=== PATIENT | female | born 1935 | race Caucasian/White ===

== ENCOUNTER 2017-07-11 08:37 | Emergency (ER) | payer MEDICARE, BC ==
[~2017-07-11] VITALS: Ht 149.9 cm; Wt 77.0 kg
[~2017-07-11 08:37] MED LIST: CLIN150 PO; DICL50TA3 PO; GLUC250C5; INDO50CA PO; MAXZ25 PO; PRAV10 PO
[2017-07-11 08:41] VITALS: BP 133/62; PULSE 90; RESP 16; TEMP 97.7; O2SAT 95
--- NOTE | 2017-07-11 08:56 | PD ---
HPI Chief Complaint: Musculoskeletal Complaint Time Seen by Provider: 08:52 Travel History International Travel<30 days: No Contact w/Intl Traveler<30days: No Traveled to known affect area: No History of Present Illness HPI Patient presents with concerns of 2-3 days of left ankle swelling. Denies any trauma misstep or fall. Admits to an episode of gout 20 years ago. Painful to bear weight. Denies any calf pain. PFSH Past Medical History High Cholesterol: Yes Gout: Yes Hypertension: Yes Menopausal: Yes Social History Alcohol Use: Yes (WINE) Tobacco Use: No Substance Use: No Allergies-Medications (Allergen,Severity, Reaction): Coded Allergies: Sulfa (Sulfonamide Antibiotics) (Verified Allergy, Unknown, 07/11/17) Reported Meds & Prescriptions Reported Meds & Active Scripts Active Naproxen 500 Mg Tab 500 Mg PO BID 10 Days Reported Triamterene-Hydrochlorothiazide 37.5-25 Mg Cap 1 Cap PO DAILY Pravastatin 10 Mg Tab 10 Mg PO DAILY Glucosamine-Chondroitin 500-400 Mg Tab 1 Tab PO DAILY Review of Systems General / Constitutional: No: Fever Eyes: No: Visual changes HENT: No: Headaches Cardiovascular: No: Chest Pain or Discomfort Respiratory: No: Shortness of Breath Gastrointestinal: No: Abdominal Pain Genitourinary: No: Dysuria Musculoskeletal: No: Pain Skin: No Rash Neurologic: No: Weakness Psychiatric: No: Depression Endocrine: No: Polydipsia Hematologic/Lymphatic: No: Easy Bruising Physical Exam Narrative GENERAL: Well-nourished, well-developed patient. SKIN: Focused skin assessment warm/dry. HEAD: Normocephalic. EYES: No scleral icterus. No injection or drainage. NECK: Supple, trachea midline. No JVD or lymphadenopathy. CARDIOVASCULAR: Regular rate and rhythm without murmurs, gallops, or rubs. RESPIRATORY: Breath sounds equal bilaterally. No accessory muscle use. GASTROINTESTINAL: Abdomen soft, non-tender, nondistended. MUSCULOSKELETAL: No cyanosis, or edema. BACK: Nontender without obvious deformity. No CVA tenderness. Left ankle swelling with palpable dorsal pedis pulses bilaterally, no ecchymosis or bony deformity, pain on flexion extension and manipulation Data Data Last Documented VS Vital Signs Date Time Temp Pulse Resp B/P (MAP) Pulse Ox O2 Delivery O2 Flow Rate FiO2 07/11/17 08:41 97.7 90 16 133/62 (85) 95 Orders Orders Ankle, Limited (Ap&Lat) (07/11/17 ) Splint Or Brace Apply/Monitor (07/11/17 09:24) MDM Medical Decision Making Medical Screen Exam Complete: Yes Emergency Medical Condition: Yes Differential Diagnosis Gout, pseudogout, ankle sprain, DVT, ankle fracture Narrative Course Assessment and plan discussed with patient and at bedside. Last 72 hours Impressions Ankle X-Ray 07/11/17 0000 Signed Impressions: Service Date/Time: Tuesday, July 11, 2017 08:59 - CONCLUSION: Generalized soft tissue swelling without fracture Aries Levine MD FACR Diagnosis Primary Impression: Ankle pain, left Qualified Codes: M25.572 - Pain in left ankle and joints of left foot Patient Instructions: General Instructions Additional Instructions: Patient is unstable and crutches, encouraged to use her walker on a regular basis. Encouraged follow-up with her PCP for additional studies. Return to emergency with any onset of new symptoms. Encourage nonsteroidal anti- inflammatories ice and elevation Med/Other Pt SpecificInfo: Prescription(s) given Scripts Naproxen (Naproxen) 500 Mg Tab 500 MG PO BID for inflammation for 10 Days, #20 TAB 0 Refills Prov: Eagle Teague MD 07/11/17 Disposition: 01 DISCHARGE HOME Condition: Good Eagle Teague MD Jul 11, 2017 08:55
[2017-07-11] MEDS ORDERED: PRAV10TA PO (08:57)
[2017-07-11] MEDS ORDERED: GLUC500T4 PO (08:57)
[2017-07-11] MEDS ORDERED: TRIA37.53 PO (08:57)
--- NOTE | 2017-07-11 09:16 | RADRPT ---
EXAM DATE/TIME: 07/11/2017 08:59 [facility] COMPARISON: No previous studies available for comparison. INDICATIONS : Pain and swelling. MEDICAL HISTORY : None. SURGICAL HISTORY : None. ENCOUNTER: Initial ACUITY: 3 days PAIN SCORE: 7/10 LOCATION: Left ankle. FINDINGS: Generalized soft tissue swelling with mild degenerative changes. No fracture CONCLUSION: Generalized soft tissue swelling without fracture Aries Levine MD FACR on July 11, 2017 at 9:12 Board Certified Radiologist. This report was verified electronically.
[2017-07-11] MEDS ORDERED: NAPR500T2 PO (09:24)
== END 2017-07-11 09:56 | disposition home or self-care (01) ==
LOC: PHEFT 08:37
DX: M25.572 Pain in left ankle and joints of left foot (principal); E78.00 Pure hypercholesterolemia, unspecified; M10.9 Gout, unspecified; I10 Essential (primary) hypertension; Z79.899 Other long term (current) drug therapy; Z88.2 Allergy status to sulfonamides
CPT/HCPCS: 73600; 99283

== ENCOUNTER 2017-07-24 23:05 | Emergency (ER) | payer MEDICARE, BC ==
[~2017-07-24] VITALS: Ht 152.4 cm; Wt 77.2 kg
[~2017-07-24 23:05] MED LIST changes: -CLIN150 PO; -DICL50TA3 PO; -GLUC250C5; +GLUC500T4 PO; -INDO50CA PO; -MAXZ25 PO; +NAPR500T2 PO; -PRAV10 PO; +PRAV10TA PO; +TRIA37.53 PO
[2017-07-24 23:08] VITALS: BP 171/72; PULSE 94; RESP 16; TEMP 97.3; O2SAT 95
[2017-07-25] MEDS ORDERED: SILVER NITR/POTASSIUM NITRATE APPLICATORS TOPICAL ONE (00:15)
--- NOTE | 2017-07-25 00:21 | PD ---
HPI Chief Complaint: Oral / Dental Pain or Problem Time Seen by Provider: 23:59 Travel History International Travel<30 days: No Contact w/Intl Traveler<30days: No Traveled to known affect area: No History of Present Illness HPI The patient is an 82-year-old female that noticed a loose tooth today, tooth # 16. She has some pain whenever the tooth moves. It is not bleeding. PFSH Past Medical History High Cholesterol: Yes Gout: Yes Hypertension: Yes Immunizations Current: Yes (SHINGLES: 2017) Tetanus Vaccination: > 5 Years Influenza Vaccination: Yes ?: Not Menopausal: Yes Past Surgical History Eye Surgery: Yes (BILATERAL CATARACT) Joint Replacement: Yes (BILATERAL KNEE, RIGHT ANKLE) Social History Alcohol Use: Yes (WINE) Tobacco Use: No Substance Use: No Allergies-Medications (Allergen,Severity, Reaction): Coded Allergies: Sulfa (Sulfonamide Antibiotics) (Verified Allergy, Unknown, 07/24/17) Reported Meds & Prescriptions Reported Meds & Active Scripts Active Reported Triamterene-Hydrochlorothiazide 37.5-25 Mg Cap 1 Cap PO DAILY Pravastatin 10 Mg Tab 10 Mg PO DAILY Glucosamine-Chondroitin 500-400 Mg Tab 1 Tab PO DAILY Review of Systems Except as stated in HPI: all other systems reviewed are Neg Physical Exam Narrative GENERAL: Well-nourished, well-developed patient in moderate apparent distress with her loose tooth. Her vital signs show blood pressure 171/72 but otherwise normal. SKIN: Focused skin assessment warm/dry. HEAD: Normocephalic. EYES: No scleral icterus. No injection or drainage. NECK: Supple, trachea midline. No JVD or lymphadenopathy. CARDIOVASCULAR: Regular rate and rhythm without murmurs, gallops, or rubs. RESPIRATORY: Breath sounds equal bilaterally. No accessory muscle use. GASTROINTESTINAL: Abdomen soft, non-tender, nondistended. MUSCULOSKELETAL: No cyanosis, or edema. BACK: Nontender without obvious deformity. No CVA tenderness. DENTAL: No malocclusion. Tooth #16 is extremely loose and they removed it. There was minimal bleeding present and the patient needed no cauterization. Data Data Last Documented VS Vital Signs Date Time Temp Pulse Resp B/P (MAP) Pulse Ox O2 Delivery O2 Flow Rate FiO2 07/24/17 23:08 97.3 94 16 171/72 (105) 95 Orders Orders Silver Nitrate Applicators (Silver Nitra (07/25/17 00:15) MDM Medical Decision Making Medical Screen Exam Complete: Yes Emergency Medical Condition: Yes Medical Record Reviewed: Yes Differential Diagnosis Loose tooth, infected tooth, dental abscess Narrative Course The tooth was extremely loose and I removed it without a problem. There was minimal bleeding which did not need any cauterization, packing or anything else at this time. The patient is told to bite down on a moistened T bag if she gets bleeding again. She should follow-up with a dentist. Diagnosis Primary Impression: S/P tooth extraction Additional Instructions: As we discussed, bite down on a moistened tea bag if you get bleeding again. Follow-up with a dentist. Bring the tooth to the dentist so the he can examine it. Med/Other Pt SpecificInfo: No Change to Meds Disposition: 01 DISCHARGE HOME Condition: Stable Neel Dumont MD Jul 25, 2017 00:21
== END 2017-07-25 00:29 | disposition home or self-care (01) ==
LOC: PHED 23:05
DX: K08.89 Other specified disorders of teeth and supporting structures (principal); E78.00 Pure hypercholesterolemia, unspecified; M10.9 Gout, unspecified; I10 Essential (primary) hypertension; Z79.899 Other long term (current) drug therapy; Z88.2 Allergy status to sulfonamides
CPT/HCPCS: 99283

== ENCOUNTER 2017-10-13 13:00 | Emergency (ER) | payer MEDICARE, BC ==
[~2017-10-13] VITALS: Ht 152.4 cm; Wt 77.0 kg
[~2017-10-13 13:00] MED LIST changes: -NAPR500T2 PO
[2017-10-13 13:08] VITALS: BP 165/74; PULSE 82; RESP 16; TEMP 97.9; O2SAT 98
[2017-10-13] MEDS ORDERED: predniSONE 20 MG TAB PO ONE (13:45)
[2017-10-13] MEDS ORDERED: IBUPROFEN 800 MG TAB PO ONE (13:45)
--- NOTE | 2017-10-13 14:09 | RADRPT ---
EXAM DATE/TIME: 10/13/2017 13:44 [facility] COMPARISON: No previous studies available for comparison. INDICATIONS : Right pain and swelling medial and lateral, no known injury. MEDICAL HISTORY : None. SURGICAL HISTORY : right ankle replacement ENCOUNTER: Initial ACUITY: 2 days PAIN SCORE: 2/10 LOCATION: Right ankle FINDINGS: Three view exam was performed of the right ankle. Postoperative right ankle joint replacement. Lag sc rew medial malleolus. Accessory ossicles the lateral malleolus. Soft tissue swelling at the right ank le. CONCLUSION: 1. Soft tissue swelling at the right ankle. Postoperative ankle joint replacement. Osteopenia. Piotr Tolentino MD on October 13, 2017 at 14:04 Board Certified Radiologist. This report was verified electronically.
[2017-10-13] MEDS ORDERED: IBUP-232 PO (14:14)
[2017-10-13] MEDS ORDERED: MEDR4PAK PO (14:14)
[2017-10-13] MEDS ORDERED: PANT20 PO (14:25)
--- NOTE | 2017-10-13 14:29 | PD ---
HPI Chief Complaint: Pain: Acute or Chronic Time Seen by Provider: 13:17 Travel History International Travel<30 days: No Contact w/Intl Traveler<30days: No Traveled to known affect area: No History of Present Illness HPI 82-year-old female that presents to the ED for evaluation of pain and swelling to the right ankle been no injury. Per patient she has a history of swelling in this in the past and has been told she has pseudogout versus gout. She has taken steroids in the past and and inflammatories with relief but she is concerned because she doesn't believe she said her have it on this ankle. She states that she had surgery on this ankle and had a replacement on it. Has been doing okay since. Denies any recent travel. She has been here in [place] for at least 3 months. Denies any urinary or bowel movement issues. Per patient the pain is sharp with weightbearing. Otherwise minimal discomfort. No trauma or injury. Allergies to sulfa. Pain per patient is 6 out of 10. PFSH Past Medical History Hx Anticoagulant Therapy: No Cardiovascular Problems: Yes (HTN CHOL) High Cholesterol: Yes Diabetes: No Gout: Yes (?) Hypertension: Yes Immunizations Current: Yes (SHINGLES: 2017) Tetanus Vaccination: > 5 Years Influenza Vaccination: Yes ?: Not Menopausal: Yes Past Surgical History Eye Surgery: Yes (BILATERAL CATARACT) Joint Replacement: Yes (BILATERAL KNEE, RIGHT ANKLE) Social History Alcohol Use: Yes (WINE) Tobacco Use: No (QUIT 1993) Substance Use: No Allergies-Medications (Allergen,Severity, Reaction): Coded Allergies: Sulfa (Sulfonamide Antibiotics) (Verified Allergy, Unknown, 10/13/17) Reported Meds & Prescriptions Reported Meds & Active Scripts Active Protonix (Pantoprazole Sodium) 20 Mg Tab 20 Mg PO DAILY Ibuprofen 600 Mg Tab 600 Mg PO QID Medrol Dosepak (Methylprednisolone) 4 Mg Dspk 4 Mg PO DIRECTED Per Pharmacist direction Reported Triamterene-Hydrochlorothiazide 37.5-25 Mg Cap 1 Cap PO DAILY Pravastatin 10 Mg Tab 10 Mg PO DAILY Glucosamine-Chondroitin 500-400 Mg Tab 1 Tab PO DAILY Review of Systems Except as stated in HPI: all other systems reviewed are Neg Physical Exam Narrative GENERAL: SKIN: Warm and dry. HEAD: Atraumatic. Normocephalic. EYES: Pupils equal and round. No scleral icterus. No injection or drainage. ENT: No nasal bleeding or discharge. Mucous membranes pink and moist. NECK: Trachea midline. No JVD. CARDIOVASCULAR: Regular rate and rhythm. RESPIRATORY: No accessory muscle use. Clear to auscultation. Breath sounds equal bilaterally. GASTROINTESTINAL: Abdomen soft, non-tender, nondistended. Hepatic and splenic margins not palpable. MUSCULOSKELETAL: Extremities without clubbing, cyanosis, or edema. No obvious deformities. Full range of motion of the upper and lower extremities bilaterally. 2+ pulses bilaterally. Patient does have soft tissue swelling on the ankle bilaterally with erythema and swelling as well as warmth noted on the medial aspect. Blanchable. Patient does have old surgical scars on the ankle itself. No obvious bony deformity noted to the foot or the ankle. NEUROLOGICAL: Awake and alert. No obvious cranial nerve deficits. Motor grossly within normal limits. Five out of 5 muscle strength in the arms and legs. Normal speech. PSYCHIATRIC: Appropriate mood and affect; insight and judgment normal. Data Data Last Documented VS Vital Signs Date Time Temp Pulse Resp B/P (MAP) Pulse Ox O2 Delivery O2 Flow Rate FiO2 10/13/17 13:08 97.9 82 16 165/74 (104) 98 Orders Orders Ankle, Complete (Fla2ztq) (10/13/17 ) Prednisone (Deltasone) (10/13/17 13:45) Ibuprofen (Motrin) (10/13/17 13:45) Ed Discharge Order (10/13/17 14:24) [facility] Medical Decision Making Medical Screen Exam Complete: Yes Emergency Medical Condition: Yes Medical Record Reviewed: Yes Interpretation(s) xray showed soft tissue swelling and chronic changes otherwise negative per radiology. Differential Diagnosis Pseudogout versus gout versus inflammatory arthropathy Narrative Course 82-year-old female that presents to the ED for evaluation of soft tissue swelling to the right ankle. Patient was properly examined and was found to have signs and symptoms consistent with appears to be likely inflammatory arthropathy. Very likely pseudogout versus gout. I did review her medical records and she's been here almost every year around this time for the same except in different joints. Most likely pseudogout as patient does have a history of arthritis. X-ray was done and show no sign of bony injury. Do not believe this is infection in nature as patient has no fevers chills or sweats. Patient will be given a prescription for Medrol Dosepak as well as anti- inflammatory. Patient was given a prescription for Protonix to cover for gastritis induced from the medications about. Patient was told to follow up with PCP when she gets home. See ED worsening symptoms. Diagnosis Primary Impression: Inflammatory arthritis Patient Instructions: General Instructions Additional Instructions: Take medications as prescribed. Follow-up with PCP. Ask him to check a Uric Acid level to make sure you do not need to be on chronic gout medications. See ED for any worsening symptoms. Apply ice or heat as needed for pain Med/Other Pt SpecificInfo: Prescription(s) given Scripts Pantoprazole (Protonix) 20 Mg Tab 20 MG PO DAILY for Reflux, #7 TAB 0 Refills Prov: Vivek Crockett MD 10/13/17 Ibuprofen (Ibuprofen) 600 Mg Tab 600 MG PO QID for Arhthritis Pain, #20 TAB 0 Refills Prov: Vivek Crockett MD 10/13/17 Methylprednisolone Dosepak (Medrol Dosepak) 4 Mg Dspk 4 MG PO DIRECTED, #1 DSPK 0 Refills Per Pharmacist direction Prov: Vivek Crockett MD 10/13/17 Disposition: 01 DISCHARGE HOME Condition: Stable Carlos Foy Oct 13, 2017 14:29
== END 2017-10-13 14:55 | disposition home or self-care (01) ==
LOC: PHEFT 13:00
DX: M13.871 Other specified arthritis, right ankle and foot (principal); I10 Essential (primary) hypertension; E78.00 Pure hypercholesterolemia, unspecified
CPT/HCPCS: 73610; 99283; J7512